=== PATIENT | female | born 1970 | race Caucasian/White ===

== ENCOUNTER 2021-02-01 07:35 | Outpatient (REF) | payer OTHER, SELFPAY ==
[2021-02-01 12:09] LABS: Alanine Aminotransferase 26 U/L (0-31); Albumin Level 4.1 g/dL (3.5-5.0); Alkaline Phosphatase 70 U/L (39-117); Anion Gap 11 (12-20); Aspartate Amino Transferase 22 U/L (5-31); Bilirubin Total 0.5 mg/dL (0.0-1.0); Blood Urea Nitrogen 16 mg/dL (9-16); Calcium 9.2 mg/dL (8.4-10.2); Carbon Dioxide 26 mmol/L (22-29); Chloride 106 mmol/L (96-108); Cholesterol 241 mg/dL; Estimated Glomerular Filt Rate > 60; Glucose Fasting 101 mg/dL (60-99); HDL Cholesterol 65 mg/dL; LDL Cholesterol Calculated 146 mg/dl; Potassium 4.2 mmol/L (3.3-5.1); Sodium 139 mmol/L (135-145); Total Protein 6.8 g/dL (6.5-8.0); Triglycerides 152 mg/dL
[2021-02-01 12:10] LABS: TSH reflex Free T4 5.38 uIU/mL (0.32-4.0)
[2021-02-01 12:55] LABS: Free T4 (Free Thyroxine) 0.75 ng/dL (0.71-1.85)
== END 2021-02-01 07:36 | disposition home or self-care (01) ==
LOC: HO.WFDLDS 07:35
PROVIDERS: Visit Provider Family Medicine
DX: Z00.00 Encounter for general adult medical examination without abnormal findings (principal)
CPT/HCPCS: 36415; 80053; 80061; 84439; 84443

== ENCOUNTER 2021-03-15 16:02 | Outpatient (REF) | payer OTHER, SELFPAY ==
--- NOTE | ~2021-03-15 | MM_ITS ---
EXAMINATION: MM SCREENING DIGITAL BREAST TOMOSYNTHESIS, BILATERAL CLINICAL INFORMATION: Screening. Asymptomatic. The lifetime risk of breast cancer based on the Tyrer-Cuzick Model is 8%. COMPARISON: Outside mammography: 02/14/2019, 02/07/2018, 02/02/2017 ([place]) TECHNIQUE: Digital breast tomosynthesis is performed in both the craniocaudal and mediolateral oblique views along with computer-aided detection (CAD). Synthesized 2D images are generated from the tomosynthesis. FINDINGS: There are scattered areas of fibroglandular density (ACR BI-RADS breast composition Category b). There are no significant masses, abnormal calcifications, or other abnormalities. Parenchymal pattern is similar to prior outside exams. There is no developing density or architectural abnormality. The axilla and skin contours are unremarkable. No significant changes from prior outside studies. MM/MM tomosynthesis screening BI IMPRESSION: No mammographic evidence of malignancy. ASSESSMENT: BI-RADS 1: Negative RECOMMENDATION: Routine annual mammography screening. This patient's information was entered into a reminder system with a target due date for their next mammogram.
== END 2021-03-15 16:03 | disposition home or self-care (01) ==
LOC: HO.MAMMO 16:02
PROVIDERS: Visit Provider Family Medicine
DX: Z12.31 Encounter for screening mammogram for malignant neoplasm of breast (principal)
CPT/HCPCS: 77063; 77067

== ENCOUNTER → 2021-04-07 08:32 | Outpatient (BNVA) | payer OTHER, SELFPAY | PROVIDERS: PCP Family Medicine; Referring Provider Family Medicine; Visit Provider Nurse Practitioner ==

== ENCOUNTER 2021-04-25 07:44 | Outpatient (REF) | payer OTHER, SELFPAY ==
[2021-04-25 11:54] LABS: Anion Gap 11 (12-20); Blood Urea Nitrogen 18 mg/dL (9-16); Calcium 9.4 mg/dL (8.4-10.2); Carbon Dioxide 28 mmol/L (22-29); Chloride 105 mmol/L (96-108); Estimated Glomerular Filt Rate > 60; Glucose Fasting 99 mg/dL (60-99); Potassium 4.7 mmol/L (3.3-5.1); Sodium 139 mmol/L (135-145)
[2021-04-25 12:17] LABS: Free T4 (Free Thyroxine) 0.78 ng/dL (0.71-1.85); Thyroid Stimulating Hormone 5.88 uIU/mL (0.32-4.0)
[2021-04-25 12:19] LABS: Estimated Average Glucose 123 mg/dL; Hemoglobin A1c % 5.9 %
[2021-04-26 19:00] LABS: Triiodothyronine T3 Total 101 ng/dL (76-181)
== END 2021-04-25 07:45 | disposition home or self-care (01) ==
LOC: HO.WFDLDS 07:44
PROVIDERS: Visit Provider Family Medicine
DX: R79.89 Other specified abnormal findings of blood chemistry (principal); R73.01 Impaired fasting glucose
CPT/HCPCS: 36415; 80048; 83036; 84439; 84443; 84480

== ENCOUNTER 2021-08-08 08:59 | Day surgery (SDC) | payer OTHER, SELFPAY ==
--- NOTE | 2021-08-04 13:51 | HO.ANESPROP2 ---
Documented by User: Alisa Hollingsworth NP 08/04/21 13:53 HPI - Anesthesia Eval Consult details Narrative: 51yo F for Upper Endoscopy and Colonoscopy PMFSH Active Problems Active Problems: All Active Problems (Updated 08/01/21 @ 16:09 by Lillie Alonzo, RN) Laboratory exam ordered as part of routine general medical examination (Acute) Heartburn (Acute) GERD (gastroesophageal reflux disease) (Acute) Family history- stomach cancer (Acute) Family history of polyps in the colon (Acute) Elevated fasting blood sugar (Acute) Elevated TSH (Acute) Hyperlipidemia (Acute) Adult general medical exam (Acute) Screening for colon cancer (Acute) Breast cancer screening by mammogram (Acute) Screening for cervical cancer (Acute) Chest wall pain (Acute) Pre-diabetes (Acute) Hypothyroidism (Acute) Past Medical History Medical History (Updated 08/01/21 @ 16:09 by Lillie Alonzo, RN) Anxiety DVT of leg (deep venous thrombosis) GERD (gastroesophageal reflux disease) Hx of blood clots Hypothyroidism Pre-diabetes Restless leg syndrome Surgical History Surgical History History of tonsillectomy Social History Social History Housing: House Patient Tobacco Use Status: Former Tobacco user e-Cigarette/Vaping Use: Never Used Second Hand Smoke Exposure: No Use of substances other than those prescribed or required for medical reasons: No Are you DNR?: No Advance Directives: No Advance Directives Information Provided: Yes service: No Current occupational status: employed Current occupational exposures/hazards: No Cognitive needs: No Hearing needs: No Vision needs: No Meds Allergies Allergy/AdvReac Type Severity Reaction Status Date / Time latex Allergy Mild Unknown Verified 05/05/21 15:52 Home Medications Medication Instructions Recorded Confirmed Last Taken Type aspirin 81 mg tablet,delayed 81 mg PO DAILY 04/07/21 08/01/21 Unknown History release folic acid 20 mg capsule 20 mg PO DAILY 04/07/21 08/01/21 Unknown History magnesium citrate (Citrate of 150 ml PO DAILY 04/07/21 08/01/21 Unknown History Magnesia) Exam Exam Date and Time: August 04, 2021 1351 Pertinent Lab Results Pertinent Lab Results: Laboratory Tests 04/25/21 07:50 Sodium 139 Potassium 4.7 Chloride 105 Carbon Dioxide 28 BUN 18 H Creatinine 0.82 Documented by User: Kim Abdi MD 08/08/21 10:22 [facility] Past Medical History Medical History (Updated 08/01/21 @ 16:09 by Lillie Alonzo RN) Anxiety DVT of leg (deep venous thrombosis) GERD (gastroesophageal reflux disease) Hx of blood clots Hypothyroidism Pre-diabetes Restless leg syndrome Family History Family history of problems with anesthesia: No Surgical History Surgical History History of tonsillectomy History of Problems with Anesthesia: No Social History Social History Housing: House Patient Tobacco Use Status: Former Tobacco user e-Cigarette/Vaping Use: Never Used Second Hand Smoke Exposure: No Use of substances other than those prescribed or required for medical reasons: No Are you DNR?: No Advance Directives: No Advance Directives Information Provided: Yes service: No Current occupational status: employed Current occupational exposures/hazards: No Cognitive needs: No Hearing needs: No Vision needs: No Meds Allergies Allergy/AdvReac Type Severity Reaction Status Date / Time latex Allergy Mild Unknown Verified 05/05/21 15:52 Home Medications Medication Instructions Recorded Confirmed Last Taken Type aspirin 81 mg tablet,delayed 81 mg PO DAILY 04/07/21 08/01/21 Unknown History release folic acid 20 mg capsule 20 mg PO DAILY 04/07/21 08/01/21 Unknown History magnesium citrate (Citrate of 150 ml PO DAILY 04/07/21 08/01/21 Unknown History Magnesia) Exam Airway Mallampati Class: II (Cap in back top right) TM Dist: >3cm Neck ROM: Full Heart: rrr Lungs: cta Assessment and Plan Assessment Anesthesia Assessment: Anesthesia Plan Discussed and Chart Reviewed Final Anesthetic Review Family History of Problems with Anesthesia: No History of Problems with Anesthesia: No NPO: Yes ASA Class: III Final Preanesthetic Review: No Changes in Pt Med Stat, Meds/Allgs Chart Reviewed and Consent Obtained/Reviewed Patient Risk: Intermediate Procedure Risk: Intermediate Anesthetic Plan Anesthetic Plan: MAC: Disposition: Standard PACU
--- NOTE | 2021-08-08 09:17 | P.HPSUR_ITS ---
Pre-Procedural Eval Section A Date of Service: 08/08/21 The patient is an INPATIENT: No The History & Physical has been completed within 30 days and I have reviewed it.: No Section B Chief Complaint: fm hx of polyps,reflux Details of Present Illness: Colon cancer screening, family history of colon polyps, GERD, LUQ pain Relevant Family History (Specify if Yes): Yes Relevant Social History: None Present Medications: see Short Stay Collaborative assessment Medical History: Significant History (Anxiety DVT of leg (deep venous thro mbosis) Hx of blood clots) History of Previous Operations: Relevant previous surgery/procedure and date(s) (History of tonsillectomy) Allergies: Allergies Allergy/AdvReac Type Severity Reaction Status Date / Time latex Allergy Mild Unknown Verified 05/05/21 15:52 Review of Systems Sugical H&P ROS: Negative: Constitution, Cardiovascular and Respiratory and Yes, Specify: Gastrointestinal (GERD) Exam Surgical H&P Exam: Normal: Heart, Normal: Lungs, Normal: Extremities and Normal: Abdomen Plan Diagnosis/Plan: Unchanged I have reviewed the history and physical and performed a pertinent physical examination on my patient. No changes have occurred unless specified.
--- NOTE | 2021-08-08 09:20 | P.BOP_ITS ---
Brief Operative Note Date of Service: 08/08/21 Pre-op diagnosis: Colon cancer screening, family history of colon polyps Post-op diagnosis: other (GERD, gastric polyps, gastritis, diverticulosis, hemorrhoids) Procedure: FLEXIBLE TRANSORAL UPPER GASTROINTESTINAL ENDOSCOPY WITH BIOPSIES AND COLONOSCOPY TILL CECUM UPPER ENDOSCOPY Consent: Indications for the procedure and potential complications of bleeding, perforation, reaction to medications and missed diagnosis were discussed with the patient and informed consent was obtained. Instrument: Olympus GIF H 190 mid size upper endoscope Monitoring: Vital signs and clinical assessment, continuous EKG monitoring, Pulse oximetry, Carbon Dioxide monitoring and blood pressure monitoring were done throughout the procedure. Procedure: The patient was placed in the left lateral decubitis position and pre-procedure medications were administered and a bite block was placed. The endoscope was inserted into the mouth and advanced under direct vision to the third part of duodenum. A careful inspection was made as the upper endoscope was withdrawn including a retroflexed examination of the proximal stomach; Findings and interventions are described below. Findings: Larynx: Normal Esophagus: GE junction at 35 cms. No esophagitis or Horton's. Stomach: Multiple 2-5 mm benign appearing polyps in the gastric body and dundus - biopsied. Mild gastric erythema. Biopsies were obtained. Grade 2 flap valve on retroflexed examination of the cardia. Duodenum: Normal bulb and descending duodenum. Biopsies were obtained from 3rd part of the duodenum to check for celiac sprue. Intervention: Biopsies as noted above COLONOSCOPY PROCEDURE NOTE Consent: Indications for the procedure and potential complications of bleeding, perforation, reaction to medications and missed diagnosis were discussed with the patient and informed consent was obtained. Instrument: Olympus PCF H 190 L variable stiffness pediatric colonoscope Monitoring: Vital signs and clinical assessment, intermittent blood pressure monitoring, continuous EKG monitoring, Pulse oximetry and Carbon Dioxide monitoring were done throughout the procedure. Colon withdrawl time was 14 minutes. Procedure: The patient was placed in the left lateral decubitis position and pre-procedure medications were administered. After a digital rectal examination of the ano-rectum, the video colonoscope was inserted into the rectum and advanced through the colon to the cecum. The colonoscope was slowly withdrawn in a retrograde panoramic fashion and the colon mucosa was carefully examined including a retroflexed view of the rectum. Findings and interventions are described below. Procedure Difficulty: : Without difficulty Findings: Terminal Ileum: Not evaluated Cecum: Normal Ascending Colon: Normal Transverse Colon: Normal Descending Colon: Normal Sigmoid Colon: Moderate diverticulosis Rectum: Normal Ano-rectum: Small internal hemorrhoids Colon preparation: Excellent Impression and Post Procedure Diagnosis: Endoscopy Findings: ESOPHAGUS: GE junction at 35 cms. No esophagitis or Horton's. STOMACH: Multiple 2-5 mm benign appearing polyps in the gastric body and dundus - biopsied. Mild gastric erythema. Biopsies were obtained. DUODENUM: Normal - biopsied to check for celiac sprue Colonoscopy Findings: No polyps were detected Moderate diverticulosis seen in the sigmoid colon Small hemorrhoids on retroflexed exam. No source found for abdominal pain Plan: Await pathology results Patient has an appointment on 09/12/21 in the GI Clinic with Monica Conroy NP. Consider further evaluation with abdominal CT scan if pt continues to have abdominal pain. Repeat Colonoscopy - in 5 years due to positive family hx of colon polyps. GERD, gastric polyps and diverticulosis handouts were given in the discharge area Surgeon: Modesto Solis MD Anesthesia: MAC (Dr Corbin) Was an Master Lay Out Specialist used for this Procedure?: Yes Master Lay Out Specialist: Mindy Davalos Estimated blood loss (mL): 0 Pathology: other (A. small bowel bxs, R/O celiac B. gastric antrum bxs, R/O H. pylori C. gastric polyps bxs) Condition: stable Disposition: PACU
[2021-08-08 09:31] VITALS: BMI 29.2
[2021-08-08 09:36] VITALS: BP 145/71; PULSE 73; RESP 18; TEMP 36.2; O2SAT 96
[2021-08-08] MEDS: Lactated Ringers 1,000 ML 100 ML IVCONT (09:47)
--- NOTE | 2021-08-08 10:31 | P.OP_ITS ---
Operative Note Operative Note Date of Service: 08/08/21 Narrative: Pre-op diagnosis: Colon cancer screening, family history of colon polyps Post-op diagnosis:?other (GERD, gastric polyps, gastritis, diverticulosis, hemorrhoids) Procedure: FLEXIBLE TRANSORAL UPPER GASTROINTESTINAL ENDOSCOPY WITH BIOPSIES AND COLONOSCOPY TILL CECUM UPPER ENDOSCOPY Consent:?Indications for the procedure and potential complications of bleeding, perforation, reaction to medications and missed diagnosis were discussed with the patient and informed consent was obtained. Instrument:?Olympus GIF H 190 mid size upper endoscope Monitoring: Vital signs and clinical assessment, continuous EKG monitoring, Pulse oximetry, Carbon Dioxide monitoring and blood pressure monitoring were done throughout the procedure. Procedure:?The patient was placed in the left lateral decubitis position and pre-procedure medications were administered and a bite block was placed. The endoscope was inserted into the mouth and advanced under direct vision to the third part of duodenum. A careful inspection was made as the upper endoscope was withdrawn including a retroflexed examination of the proximal stomach; Findings and interventions are described below. Findings: Larynx:? Normal Esophagus:?GE junction at 35 cms. No esophagitis or Horton's. Stomach:?Multiple 2-5 mm benign appearing polyps in the gastric body and dundus - biopsied. Mild gastric erythema. Biopsies were obtained. Grade 2 flap valve on retroflexed examination of the cardia. Duodenum:?Normal bulb and descending duodenum. Biopsies were obtained from 3rd part of the duodenum to check for celiac sprue. Intervention:?Biopsies as noted above COLONOSCOPY PROCEDURE NOTE Consent:?Indications for the procedure and potential complications of bleeding, perforation, reaction to medications and missed diagnosis were discussed with the patient and informed consent was obtained. Instrument:?Olympus PCF H 190 L variable stiffness pediatric colonoscope Monitoring:?Vital signs and clinical assessment, intermittent blood pressure monitoring, continuous EKG monitoring, Pulse oximetry and Carbon Dioxide monitoring were done throughout the procedure. Colon withdrawl time was 14 minutes. Procedure:?The patient was placed in the left lateral decubitis position and pre-procedure medications were administered. After a digital rectal examination of the ano-rectum, the video colonoscope was inserted into the rectum and advanced through the colon to the cecum. The colonoscope was slowly withdrawn in a retrograde panoramic fashion and the colon mucosa was carefully examined including a retroflexed view of the rectum. Findings and interventions are described below. Procedure Difficulty:?: Without difficulty Findings: Terminal Ileum: Not evaluated Cecum:? Normal Ascending Colon:??Normal Transverse Colon:??Normal Descending Colon:? Normal Sigmoid Colon:??Moderate diverticulosis Rectum:??Normal Ano-rectum:??Small internal hemorrhoids Colon preparation: Excellent ? Impression and Post Procedure Diagnosis: Endoscopy Findings: ESOPHAGUS: GE junction at 35 cms. No esophagitis or Horton's. STOMACH: Multiple 2-5 mm benign appearing polyps in the gastric body and dundus - biopsied. Mild gastric erythema. Biopsies were obtained. DUODENUM: Normal - biopsied to check for celiac sprue Colonoscopy Findings: No polyps were detected Moderate diverticulosis seen in the sigmoid colon Small hemorrhoids on retroflexed exam. No source found for abdominal pain Plan: Await pathology results Patient has an appointment on 09/12/21 in the GI Clinic with? Monica Conroy NP. Consider further evaluation with abdominal CT scan if pt continues to have abdominal pain. Repeat Colonoscopy - in 5 years due to positive family hx of colon polyps. GERD, gastric polyps and diverticulosis handouts were given in the discharge area Surgeon: Modesto Solis MD Anesthesia:?MAC (Dr Corbin) Was an Surface Hydrologist used for this Procedure?:?Yes Surface Hydrologist:?Mindy Davalos Estimated blood loss (mL):?0 Pathology:?other (A. small bowel bxs, R/O celiac? B. gastric antrum bxs, R/O H. pylori? C. gastric polyps bxs) Condition:?stable Disposition:?PACU
[2021-08-08 11:16] VITALS: BP 93/42; PULSE 58; RESP 16; TEMP 36.2; O2SAT 96
[2021-08-08 11:31] VITALS: BP 115/55; PULSE 65; RESP 16; O2SAT 96
[2021-08-08 11:44] VITALS: BP 121/61; PULSE 69; RESP 20; TEMP 36.2; O2SAT 98
== END 2021-08-08 12:10 | disposition home or self-care (01) ==
PROVIDERS: PCP Family Medicine; Visit Provider Internal Medicine Gastroenterology
PROC: (CPT 45378; principal; 2021-08-08 10:10)
DX: Z12.11 Encounter for screening for malignant neoplasm of colon (principal); Z83.71 Family history of colonic polyps; K21.9 Gastro-esophageal reflux disease without esophagitis; K31.7 Polyp of stomach and duodenum; K29.50 Unspecified chronic gastritis without bleeding; K57.30 Diverticulosis of large intestine without perforation or abscess without bleeding; K64.8 Other hemorrhoids; F41.1 Generalized anxiety disorder; Z79.82 Long term (current) use of aspirin; Z79.899 Other long term (current) drug therapy; Z91.040 Latex allergy status; Z86.718 Personal history of other venous thrombosis and embolism; Z87.891 Personal history of nicotine dependence
CPT/HCPCS: 45378; 43239; 88305; 88342

== ENCOUNTER 2021-10-11 07:40 | Outpatient (REF) | payer OTHER, SELFPAY ==
[2021-10-11 12:15] LABS: Free T4 (Free Thyroxine) 0.94 ng/dL (0.71-1.85)
[2021-10-13 04:45] LABS: Triiodothyronine T3 Total 78 ng/dL (76-181)
== END 2021-10-11 07:41 | disposition home or self-care (01) ==
LOC: HO.WFDLDS 07:40
PROVIDERS: Visit Provider Family Medicine
DX: E03.9 Hypothyroidism, unspecified (principal)
CPT/HCPCS: 36415; 84439; 84443; 84480

== ENCOUNTER 2021-11-24 07:42 | Outpatient (REF) | payer OTHER, SELFPAY ==
[2021-11-24 11:29] LABS: Thyroid Stimulating Hormone 2.36 uIU/mL (0.32-4.0)
[2021-11-26 07:33] LABS: Triiodothyronine T3 Total 97 ng/dL (76-181)
== END 2021-11-24 07:43 | disposition home or self-care (01) ==
LOC: HO.WFDLDS 07:42
PROVIDERS: Visit Provider Family Medicine
DX: E03.9 Hypothyroidism, unspecified (principal)
CPT/HCPCS: 36415; 84439; 84443; 84480

== ENCOUNTER 2022-03-27 08:15 | Outpatient (REF) | payer OTHER, SELFPAY ==
--- NOTE | ~2022-03-27 | MM_ITS ---
EXAMINATION: MM SCREENING DIGITAL BREAST TOMOSYNTHESIS, BILATERAL CLINICAL INFORMATION: Screening. Asymptomatic. The lifetime risk of breast cancer based on the Tyrer-Cuzick Model is 10.7%. COMPARISON: Mammography: March 15, 2021 and studies dating back to February 02, 2017 TECHNIQUE: Digital breast tomosynthesis is performed in both the craniocaudal and mediolateral oblique views along with computer-aided detection (CAD). Synthesized 2D images are generated from the tomosynthesis. FINDINGS: There are scattered areas of fibroglandular density (ACR BI-RADS breast composition Category b). There are no significant masses, abnormal calcifications, or other abnormalities. MM/MM tomosynthesis screening BI IMPRESSION: No significant changes from prior exam. ASSESSMENT: BI-RADS 1: Negative RECOMMENDATION: Routine annual mammography screening. This patient's information was entered into a reminder system with a target due date for their next mammogram.
== END 2022-03-27 08:16 | disposition home or self-care (01) ==
LOC: HO.MAMMO 08:15
PROVIDERS: PCP Family Medicine; Visit Provider Family Medicine
DX: Z12.31 Encounter for screening mammogram for malignant neoplasm of breast (principal)
CPT/HCPCS: 77063; 77067

== ENCOUNTER 2022-05-09 08:03 | Outpatient (REF) | payer OTHER, SELFPAY ==
[2022-05-09 11:40] LABS: MANUAL DIFF FLAG NO
[2022-05-09 11:55] LABS: Appearance Urine Turbid; Color Urine Yellow; Glucose Urine UA Negative (Negative); Leukocyte Esterase Urine Trace (Negative); Nitrite Urine Negative (Negative); PH 8.5 (5.0-9.0); Specific Gravity - Urine 1.015 (1.005-1.025); UMIC TRIGGER UA YES; Urine Blood Negative (Negative); Urine Ketones Negative (Negative); Urine Protein Negative (Neg-Trace)
[2022-05-09 11:58] LABS: Basophils Percent Auto 0.8 % (0-2); Eosinophils Absolute Auto 0.3 X10*3/uL (0.0-0.4); Eosinophils Percent Auto 5.4 % (0-4); Hematocrit 40.8 % (37.0-47.0); Hemoglobin 12.9 g/dl (12.0-16.0); Imm Gran Abs Auto 0.01 X10*3/uL (0.00-0.03); Imm Gran Pct Auto 0.2 % (0.0-0.4); Lymphocytes Absolute Auto 1.9 X10*3/uL (1.2-4.9); Lymphocytes Percent Auto 38.2 % (20-40); Mean Corpuscular HGB Conc 31.6 g/dl (31.0-35.0); Mean Corpuscular Hemoglobin 30.7 pg (27.0-33.0); Mean Corpuscular Volume 97.1 fL (80.0-98.0); Mean Platelet Volume 10.7 fL (9.4-12.3); Monocytes Absolute Auto 0.3 X10*3/uL (0.1-1.2); Monocytes Percent Auto 6.8 % (2-11); Neutrophils Absolute Auto 2.4 x10*3/uL (2.0-8.3); Neutrophils Percent Auto 48.6 % (45-73); Platelet Count 241 X10*3/uL (160-400); Red Cell Distribution Width 12.6 % (11.0-16.0)
[2022-05-09 12:05] LABS: Bacteria Urine 1+ (None Seen); Hyaline Casts Urine 0-2 /LPF (0-2); RBC Urine 0-2 /HPF (0-2); WBC Urine 21-50 /HPF (0-5)
[2022-05-09 12:30] LABS: Alanine Aminotransferase 50 U/L (0-31); Albumin Level 4.1 g/dL (3.5-5.0); Alkaline Phosphatase 87 U/L (39-117); Anion Gap 12 (12-20); Aspartate Amino Transferase 42 U/L (5-31); Bilirubin Total 0.4 mg/dL (0.0-1.0); Blood Urea Nitrogen 13 mg/dL (9-16); Calcium 9.1 mg/dL (8.4-10.2); Carbon Dioxide 30 mmol/L (22-29); Chloride 105 mmol/L (96-108); Cholesterol 258 mg/dL; Estimated Glomerular Filt Rate > 60; Glucose Fasting 97 mg/dL (60-99); HDL Cholesterol 58 mg/dL; LDL Cholesterol Calculated 155 mg/dl; Potassium 4.3 mmol/L (3.3-5.1); Sodium 143 mmol/L (135-145); Total Protein 6.7 g/dL (6.5-8.0); Triglycerides 226 mg/dL
[2022-05-09 12:43] LABS: Creatinine Urine 106.26 mg/dL
[2022-05-09 12:49] LABS: Free T4 (Free Thyroxine) 0.92 ng/dL (0.71-1.85); Thyroid Stimulating Hormone 5.01 uIU/mL (0.32-4.0)
[2022-05-11 02:14] LABS: Triiodothyronine T3 Total 110 ng/dL (76-181)
== END 2022-05-09 08:04 | disposition home or self-care (01) ==
LOC: HO.WFDLDS 08:03
PROVIDERS: Visit Provider Family Medicine
DX: Z00.00 Encounter for general adult medical examination without abnormal findings (principal); E03.9 Hypothyroidism, unspecified; I10 Essential (primary) hypertension
CPT/HCPCS: 36415; 80053; 80061; 81001; 82043; 84439; 84443; 84480; 85025

== ENCOUNTER 2022-07-18 07:58 | Outpatient (REF) | payer OTHER, SELFPAY ==
[2022-07-18 12:03] LABS: Alanine Aminotransferase 46 U/L (0-31); Albumin Level 4.1 g/dL (3.5-5.0); Alkaline Phosphatase 87 U/L (39-117); Anion Gap 13 (12-20); Aspartate Amino Transferase 35 U/L (5-31); Bilirubin Total 0.5 mg/dL (0.0-1.0); Blood Urea Nitrogen 15 mg/dL (9-16); Calcium 9.4 mg/dL (8.4-10.2); Carbon Dioxide 29 mmol/L (22-29); Chloride 104 mmol/L (96-108); Estimated Glomerular Filt Rate > 60; Glucose Random 99 mg/dL (60-115); Potassium 4.6 mmol/L (3.3-5.1); Sodium 141 mmol/L (135-145); Total Protein 6.7 g/dL (6.5-8.0)
[2022-07-18 12:22] LABS: Thyroid Stimulating Hormone 2.96 uIU/mL (0.32-4.0)
[2022-07-20 07:34] LABS: Triiodothyronine T3 Total 90 ng/dL (76-181)
== END 2022-07-18 07:59 | disposition home or self-care (01) ==
LOC: HO.WFDLDS 07:58
PROVIDERS: Visit Provider Family Medicine
DX: E03.9 Hypothyroidism, unspecified (principal); R74.8 Abnormal levels of other serum enzymes
CPT/HCPCS: 36415; 80053; 84439; 84443; 84480

== ENCOUNTER 2022-07-25 07:35 | Outpatient (REF) | payer OTHER, SELFPAY ==
[2022-07-25 12:17] LABS: Creatinine Urine 110.86 mg/dL; Microalbum/Creatinine Ratio Ur 10.8 ug/mg cr
== END 2022-07-25 07:36 | disposition home or self-care (01) ==
LOC: HO.WFDLNP 07:35
PROVIDERS: Visit Provider Family Medicine
DX: I10 Essential (primary) hypertension (principal); R80.9 Proteinuria, unspecified
CPT/HCPCS: 82043

== ENCOUNTER 2022-08-30 08:55 | Outpatient (REF) | payer OTHER, SELFPAY ==
[2022-08-31 11:10] LABS: CT PCR NOT DETECTED (Not Detect.); NG PCR NOT DETECTED (Not Detect.)
[2022-08-31 12:38] LABS: BV Int Neg Control Negative (Negative); BV Int Pos Control Positive (Positive)
[2022-09-02 03:27] LABS: HPV mRNA E6/E7 rflx Not Detected (Not Detected)
== END 2022-08-30 08:56 | disposition home or self-care (01) ==
LOC: HO.LNP 08:55
PROVIDERS: PCP Family Medicine; Visit Provider Advanced Practice Midwife
DX: Z01.419 Encounter for gynecological examination (general) (routine) without abnormal findings (principal); I10 Essential (primary) hypertension; E03.9 Hypothyroidism, unspecified; R73.03 Prediabetes; N95.1 Menopausal and female climacteric states; N39.3 Stress incontinence (female) (male); Z86.718 Personal history of other venous thrombosis and embolism; Z79.82 Long term (current) use of aspirin; Z98.890 Other specified postprocedural states; Z20.2 Contact with and (suspected) exposure to infections with a predominantly sexual mode of transmission; Z79.899 Other long term (current) drug therapy
CPT/HCPCS: 0353U; 87480; 87510; 87624; 87660; 88142

== ENCOUNTER 2023-09-20 09:32 | Outpatient (AMB) | payer OTHER, SELFPAY ==
--- NOTE | 2023-09-20 09:33 | A.OFFVIS_ITS ---
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 Fuel Handler Required: No Information Interpreted: clinical only Chief Knowledge Officer: Chief Knowledge Officer Present Allergies latex Allergy (Mild, Verified 09/20/23 09:38) Unknown Medication List - Last Reconciled 09/20/23 by Leesa Jha CNM aspirin 81 mg PO DAILY folic acid 20 mg PO DAILY levothyroxine 50 mcg PO DAILY 30 days lorazepam 0.5 mg PO DAILY PRN 30 days magnesium citrate (Citrate of Magnesia oral) 150 mL PO DAILY sertraline 75 mg (1.5 x 50 mg) PO DAILY 30 days Post menopausal: Yes HPI HPI 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 With all that her blood pressure is good she is not sure if she missed her mammogram or if it when it is scheduled but she will be checking on that she has gotten no worries at all about STDs she has a history of abnormal Paps and LEEP in the past but they have been normal including last year's which was normal since and she has no other major concerns. COUNTS INCLUDE 234 BEDS AT THE [facility] Medical History (Updated 09/20/23 @ 10:03 by Leesa Jha CNM) Hx of LEEP (loop electrosurgical excision procedure) of cervix complicating Pre-diabetes GERD (gastroesophageal reflux disease) Hypothyroidism Restless leg syndrome DVT of leg (deep venous thrombosis) Hx of blood clots Anxiety Surgical History (Updated 09/22/22 @ 16:37 by Leesa Jha CNM) History of endoscopy History of colonoscopy History of tonsillectomy Family History (Updated 08/30/22 @ 09:17 by LUCY Dye) Paternal Grandmother Breast cancer Social History Housing: House Alcohol intake: current Alcohol intake frequency: a few times a week Patient Tobacco Use Status: Former Tobacco user e-Cigarette/Vaping Use: Never Used Second Hand Smoke Exposure: No service: No Current occupational status: employed Current occupational exposures/hazards: No Cognitive needs: No Hearing needs: No Vision needs: Yes (glasses) Female Reproductive History Menstrual Age of Menarche: 12 control method: none Total pregnancies: 3 Full term: 3 Date of last pap smear: 08/31/22 (neg) History of abnormal pap smear: Yes (2013 abn.) Date of Mammogram: 03/27/22 (neg.) Physical Exam Const General: healthy appearing, comfortable, no acute distress, well developed and alert Nutritional Appearance: average body habitus Orientation/consciousness: patient oriented x3 Limitations: no limitations HEENT Head: Yes normocephalic Neck Neck: Yes normal visual inspection Chest Chest palpation & inspection: normal inspection of the chest Breast/axilla inspection: normal inspection of the breasts and normal inspection of the axillae Breast/axilla palpation: normal palpation of the breasts and normal palpation of the axillae Resp Effort & Inspection: normal respiratory effort GI Inspection: Yes normal to inspection, No Abdominal wall edema and No distended Palpation (GI): Soft to palpation and nontender Other: Externally appears a little pink but patient denies any major issues with itching or inflammation. Vagina pink moist atrophic changes at present cervix close small nontender uterus difficult feel but not enlarged adnexa not enlarged nothing tender very very good tone with Kegel. General: Yes bladder normal to palpation External Female Exam: normal external appearance and normal appearance of the urethra Speculum Exam - Vagina: normal appearance of the vagina, normal palpation and normal vaginal discharge Speculum Exam - Cervix: normal appearance of the cervix, normal palpation and nontender Bimanual exam- vagina & uterus: normal bimanual exam, normal palpation, uterine size normal, bladder normal to palpation, consistency normal, normal palpation, uterine mobility normal, uterine shape normal, No Cervical tenderness present, non-tender and no cervical motion tenderness Bimanual Exam- Adnexa, other: normal adnexae, no masses, normal and No adnexal tenderness Neuro General: patient oriented x3 Results Reviewed Results Reviewed: Name: Jeanie Headley Age/Sex: 52/F Attending: Leesa Jha CNM : 1970 Submitted by: Leesa Jha CNM Copies to: Rinku Freitas MD MR #: [id number] Status: DEP REF Collected: 08/30/22 Location: [facility] Received: 08/31/22 Interpretation Satisfactory for evaluation. No endocervical cells seen. Coccobacilli consistent with shift in vaginal joey. Negative for intraepithelial lesion or malignancy. HPV mRNA E6/E7: NOT DETECTED This assay detects E6/E7 viral messenger RNA (mRNA) from 14 high-risk HPV types (16, 18, 31, 33, 35, 39, 45, 51, 52, 56, 58, 59, 66, 68) HPV testing performed by [facility], [place], [place]. See reference laboratory pion of the EMR for entire report. Clinical Information LMP: No menses Previous PAP test: Unknown date/findings Material Received ThinPrep-Cervical Copies To Rinku Freitas MD [address] [place], [place] [id number] Leesa Jha [address] [place] [id number] Electronically Signed By: ELIE Allen (ASCP) 09/22/22 1328 The Pap Test is a screening procedure with the inherent possibility of both false negative and false positive results. Results should be interpreted in the context of historic and current clinical findings. Reliability of the Pap Test is enhanced by performing the test on a regular repetitive basis. Patient: Jeanie Headley Age/Sex: 52/F Assessment & Plan Assessment & Plan (1) Perimenopause: Code(s): N95.1 - Menopausal and female climacteric states Category: Medical (2) Hypertension: Comment: Normotensive today despite being sent to multiple offices! Code(s): I10 - Essential (primary) hypertension Category: Medical (3) Breast cancer screening: Code(s): Z12.39 - Encounter for other screening for malignant neoplasm of breast Category: Medical (4) Well woman exam with routine gynecological exam: Code(s): Z01.419 - Encounter for gynecological examination (general) (routine) without abnormal findings Category: Medical (5) History of loop electrical excision procedure (LEEP): Comment: 08/30/2022 Pap is negative with negative HPV Code(s): Z98.890 - Other specified postprocedural states Category: Surgical Plan -----Discussed in this visit the following: healthy balanced diet, regular and consistent exercise, getting recommended health screens, doing the best she can for her particular health concerns, kegel exercises, pap smear screening and followup recommendations, mammography screening and SBE, normal changes in cycles in her life stage--- . No need for Pap today is her recent Paps were negative and last year's was negative as well. She declined any testing for STIs. She is not feeling any issue with vaginal itching and declined prescription for Monistat she would just pick it up on her own if she needs it and it is not really an issue for her. She is extremely active physically at work walking and moving around and she and her colleagues go for walks every day at lunch and she gets all her steps in. Even with atrophic changes she has no issues with intimacy and she uses lubricant if she needs it. She has excellent muscle tone with her Kegel and she is doing very well RTC 1 year she will be rescheduling her mammogram. Coding Level of Care Code Est Pt Prev Care 40-64y(14210) Diagnoses Perimenopause N95.1 Hypertension I10 Breast cancer screening Z12.39 Well woman exam with routine gynecological exam Z01.419 History of loop electrical excision procedure (LEEP) Z98.890
[2023-09-20 09:38] VITALS: BP 122/78; BMI 27.8
== END 2023-09-20 10:07 | disposition home or self-care (01) ==
LOC: HO.HWSM 09:32
PROVIDERS: PCP Family Medicine; Visit Provider Advanced Practice Midwife
DX: Z01.419 Encounter for gynecological examination (general) (routine) without abnormal findings (principal); N95.1 Menopausal and female climacteric states; I10 Essential (primary) hypertension; Z98.890 Other specified postprocedural states
CPT/HCPCS: 99396

== ENCOUNTER → 2023-09-20 09:32 | Outpatient (BNVA) | payer OTHER, SELFPAY | PROVIDERS: PCP Family Medicine; Visit Provider Advanced Practice Midwife ==

== ENCOUNTER 2023-10-01 12:27 | Outpatient (AMB) | payer OTHER, SELFPAY ==
--- NOTE | 2023-10-01 12:33 | MHC.OFFWIV ---
Intake Vital Signs 10/01/23 12:34 Height 5 ft 3 in Weight 158 lb BMI 28.0 BP 124/80 Blood Pressure Location Rt brachial Position Sitting Pulse 67 Pulse Source Pulse Oximeter Temp 98.2 F Temp Source Oral Pulse Oximetry (%) 98 Oxygen Delivery Method Room Air Intake Visit Reasons: EP- Aches in sinuses on the right side Intake Note: Patient here sinus pain, headache,sore throat and ear pain which is only on the right side which has been present since Sunday. Patient Tobacco Use Status: Former Tobacco user Allergies latex Allergy (Mild, Verified 10/01/23 12:36) Unknown Do you need a note to return to daycare/school/sports/work: Yes HPI EP- Aches in sinuses on the right side HPI Details This note is constructed using voice recognition software. While every effort has been made to ensure accuracy, chief pharmacist errors may have been included. The patient is a 53 year old female who presents to the clinic today with sinus, throat and ear pain on right since Sunday. She notes that she has a chronic allergy and sinus suffer and is unable to tolerate Flonase nasal spray so she does use Flonase Sensimist occasionally for her symptoms, and she did try that today. She denies fever, chills, cough, shortness of breath. She reports feeling overall run down. [facility] Medical History Hx of LEEP (loop electrosurgical excision procedure) of cervix complicating Pre-diabetes GERD (gastroesophageal reflux disease) Hypothyroidism Restless leg syndrome DVT of leg (deep venous thrombosis) Hx of blood clots Anxiety Surgical History History of endoscopy History of colonoscopy History of tonsillectomy Family History Paternal Grandmother Breast cancer Social History Housing: House Alcohol intake: current Alcohol intake frequency: a few times a week Patient Tobacco Use Status: Former Tobacco user e-Cigarette/Vaping Use: Never Used Second Hand Smoke Exposure: No service: No Current occupational status: employed Current occupational exposures/hazards: No Cognitive needs: No Hearing needs: No Vision needs: Yes (glasses) Female Reproductive History Menstrual Age of Menarche: 12 Review of Systems Const All systems reviewed & are unremarkable except as noted in HPI and below Physical Exam Vital Signs: Last Vital Signs Temp 98.2 F 10/01/23 12:34 Pulse 67 10/01/23 12:34 BP 124/80 10/01/23 12:34 Pulse Ox 98 10/01/23 12:34 Oxygen Delivery Method Room Air 10/01/23 12:34 BMI result Body Mass Index 28.0 Const General: cooperative, healthy appearing, comfortable and no acute distress Orientation/consciousness: patient oriented x3 Limitations: no limitations HEENT Head: Yes normal to inspection Ears: hearing grossly normal bilaterally, external ears normal and TM abnormal with fluid behind the TM (white) bilateral and retracted bilateral General nose exam: Normal external nose present, Normal nares present and No nasal discharge present Face and sinus: Yes normal facial exam and Yes sinuses nontender Mouth: Normal oral and palatal mucosa present and moist mucous membranes Throat: Yes posterior oropharynx normal, Yes tonsils normal and Yes uvula midline Eyes General: appearance normal, both eyes and all related structures Neck Neck: Yes normal visual inspection Resp Effort & Inspection: normal respiratory effort, able to speak in complete sentences, Actively coughing, no respiratory distress, not tachypneic, no tripod positioning and no use of accessory muscles Auscultation: clear to auscultation bilaterally Cardio Jugular venous distension: no JVD Rate: regular rate Rhythm: regular rhythm Heart sounds: S1 normal heart sound present, S2 normal heart sound present, no click, no gallops, no murmurs and no rubs Skin General skin exam: no rashes or lesions noted, elasticity normal and turgor normal Neuro General: patient oriented x3 Extrem General: Yes normal to inspection and Yes no clubbing, cyanosis or edema Assessment & Plan Assessment & Plan (1) Acute upper respiratory infection, unspecified: Code(s): J06.9 - Acute upper respiratory infection, unspecified Plan: Physical examination consistent with likely allergies, however given recent local uptake in coronavirus and symptomatology, we did test for coronavirus today. Advised patient to continue quarantine until day 5 after symptoms and then returned to work with mask wearing if symptoms have improved, especially if test proves to be positive. He had symptomatic management with [id number] modalities including hydration, humidification, steam, sinus rinse, Flonase Sensimist, and decongestants. Advised follow up with worsening symptoms or failure to resolve. Plan See above for full details and plan. Orders: Orders SARS-CoV2/FLU/RSV Today J06.9 - Acute upper respiratory infection, unspecified Coding Level of Care Code Est Pt Level 3 (31409) Diagnoses Acute upper respiratory infection, unspecified J06.9
[2023-10-01 12:34] VITALS: BP 124/80; PULSE 67; TEMP 36.8; O2SAT 98; BMI 28.0
== END 2023-10-01 13:11 | disposition home or self-care (01) ==
PROVIDERS: PCP Family Medicine; Visit Provider Registered Nurse
DX: J06.9 Acute upper respiratory infection, unspecified (principal)
CPT/HCPCS: 99213

== ENCOUNTER 2023-10-01 12:46 | Outpatient (REF) | payer OTHER, SELFPAY ==
[2023-10-01 17:00] LABS: Influenza A PCR NEGATIVE (Negative); Influenza B PCR NEGATIVE (Negative); Resp Syncy Virus RNA Qual PCR NEGATIVE (Negative); SARS COV2 PCR INHOUSE NEGATIVE (Negative)
== END 2023-10-01 12:47 | disposition home or self-care (01) ==
LOC: HO.LNP 12:46
PROVIDERS: Visit Provider Registered Nurse
DX: J06.9 Acute upper respiratory infection, unspecified (principal)
CPT/HCPCS: 0241U

== ENCOUNTER 2024-09-10 09:12 | Outpatient (AMB) | payer OTHER, SELFPAY ==
[2024-09-10 09:24] VITALS: BP 142/86; PULSE 85; TEMP 36.8; O2SAT 98; BMI 28.3
--- NOTE | 2024-09-10 09:24 | AM.OFFWIN_ITS ---
Intake Vital Signs 09/10/24 09:24 Height 5 ft 3 in Weight 160 lb BMI 28.3 BP 142/86 H Blood Pressure Location Rt brachial Position Sitting Pulse 85 Pulse Source Pulse Oximeter Temp 98.2 F Temp Source Oral Pulse Oximetry (%) 98 Oxygen Delivery Method Room Air Intake Visit Reasons: EP-lt shoulder & arm pain Intake Note: presents with worsening left shoulder and left arm pain for 5 days - denies injury. BS ER visit 09/08, xray and ultrasound done- results WNL. Patient Tobacco Use Status: Former Tobacco user Allergies latex Allergy (Mild, Verified 09/10/24 09:28) Unknown Do you need a note to return to daycare/school/sports/work: Yes HPI HPI Comments History of Present Illness Details History of Present Illness - The patient is a 54-year-old female pr esenting with left severe shoulder pain with radiating symptoms. - The pain began on Sunday, initially to lerable but worsened over the weekend, becoming severe by Sunday. - The pain is located in the shoulder bl jaiden, radiating down the arm to the fingers, with associated tingling. - The patient visited [facility], where an ultrasound of the left arm and x-ray were performed, ruling out blood clots and fractures. - Medications including lidocaine gel, i buprofen, Valium, and Tylenol were administered without relief. - The patient attempted to contact ortho pedics for further evaluation but faced communication issues. - The pain is exacerbated by certain mov ements and alleviated slightly when ly ing down. 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 - She has been out of work and needs to extend her leave due to her pain. - She has no trauma or falls. She denies CP, SOB, abd pain, neck pain. - Has not been able to sleep due to her pain. Physical Exam General: Cooperative, healthy appearing, comfortable, no acute distress and well developed Neck: Normal visual inspection, and full ROM. No midline spinous tenderness noted. Respiratory: Normal respiratory effort and able to speak in complete sentences. Clear to auscultation bilaterally Cardiovascular: Regular rate and rhythm. Normal S1 and S2 Skin: No rashes or lesions noted Neuro: Sensation intact. Extremities: Normal to inspection. FROM Of the left shoulder, no click noted. TTP of the left posterior shoulder, along the trapezius and rhomboids. FROM of the elbow and wrist. 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 Lift off, can test, and apprehension test are all normal. Patient was informed and verbally consented to the use of an ambient scribe for clinic note documentation during this visit. [facility]LY [facility], [facility] Medical History Hx of LEEP (loop electrosurgical excision procedure) of cervix complicating Pre-diabetes GERD (gastroesophageal reflux disease) Hypothyroidism Restless leg syndrome DVT of leg (deep venous thrombosis) Hx of blood clots Anxiety Surgical History History of endoscopy History of colonoscopy History of tonsillectomy Family History Paternal Grandmother Breast cancer Social History Housing: House Alcohol intake: current Alcohol intake frequency: a few times a week Patient Tobacco Use Status: Former Tobacco user e-Cigarette/Vaping Use: Never Used Second Hand Smoke Exposure: No service: No Current occupational status: employed Current occupational exposures/hazards: No Cognitive needs: No Hearing needs: No Vision needs: Yes (glasses) Female Reproductive History Menstrual Age of Menarche: 12 Review of Systems Const All systems reviewed & are unremarkable except as noted in HPI and below Physical Exam Vital Signs: Last Vital Signs Temp 98.2 F 09/10/24 09:24 Pulse 85 09/10/24 09:24 BP 142/86 H 09/10/24 09:24 Pulse Ox 98 09/10/24 09:24 Oxygen Delivery Method Room Air 09/10/24 09:24 BMI result Body Mass Index 28.3 Assessment & Plan Assessment & Plan (1) Strain of left trapezius muscle: Code(s): S46.812A - Strain of other muscles, fascia and tendons at shoulder and upper arm level, left arm, initial encounter Qualifiers: Encounter type: subsequent encounter Qualified Code(s): S46.812D - Strain of other muscles, fascia and tendons at shoulder and upper arm level, left arm, subsequent encounter Plan Most likely spasm vs strain Reviewed her discharge paperwork from [facility] Offered her a torodal injection in the office today and she refused Plan - rest, ice or heat to the area - activities as tolerated - will give her a work note - Administer prednisone to reduce inflammation and muscle spasm. - Prescribe a different muscle relaxant as Valium was ineffective. - Provide a referral to [facility] orthopedics for further evaluation. Orders: Referrals Orthopedics Referral S46.811W - Strain of other muscles, fascia and tendons at shoulder and upper arm level, left arm, initial encounter Medications: New prednisone 50 mg PO QAM 5 tabs 0RF cyclobenzaprine 10 mg (2 x 5 mg) PO Q8H PRN 20 tabs 0RF Muscle Spasm meloxicam 15 mg PO DAILY 15 tabs 0RF Coding Level of Care Code Est Pt Level 4 (74661) Diagnoses Strain of left trapezius muscle, subsequent encounter S46.634H Encounter type: subsequent encounter
--- OUTSIDE RECORDS SUMMARY | 2024-09-10 09:42 | XMS_ITS | Clinical Summary ---
Author Organization Formerly [facility] Address [address] [place] [address] Care Team Providers Care Nut Former Name Role Phone Rinku Freitas MD Primary Care Provider Allergies Active Allergy Reactions Criticality Noted Date Comments Latex Hives Medium 12/20/2023 Medications levothyroxine (SYNTHROID, LEVOTHROID) 50 MCG tablet Take 50 mcg by mouth. 12/14/2023 Active sertraline (ZOLOFT) 50 MG tablet Take 50 mg by mouth daily. Active predniSONE (DELTASONE) 20 MG tabletIndication s:Acute bronchitis, unspecified organism Take 2 tablets (40 mg total) by mouth daily. With food. 10 tablet 12/20/2023 Active Active Problems No known active problems Social History Tobacco Use Types Packs/Day Years Used Date Smoking Tobacco: Never Smokeless Tobacco: Never Tobacco Cessation:Counseling Given: Not Answered Comments Unknown Sex and Gender Information Value Date Recorded Sex Assigned at Not on file Legal Sex Female 12:56 PM EST Gender Identity Not on file Sexual Orientation Not on file Last Filed Vital Signs Vital Sign Reading Time Taken Comments Blood Pressure 142/86 12/20/2023 12:20 PM EDT Pulse 72 12/20/2023 12:20 PM EDT Temperature 36.9 C (98.4 F) 12/20/2023 12:20 PM EDT Respiratory Rate 16 12/20/2023 12:20 PM EDT Oxygen Saturation 97% 12/20/2023 12:20 PM EDT Inhaled Oxygen Concentration - - Weight 72.1 kg (159 lb) 12/20/2023 12:20 PM EDT Height 160 cm (5' 3 ) 12/20/2023 12:20 PM EDT Body Mass Index 28.17 12/20/2023 12:20 PM EDT Plan of Treatment Health Maintenance Due Date Last Done Comments Hepatitis C Virus Screening 1970 HIV Screening 1983 DTaP/Tdap/Td Vaccines (1 - Tdap) 1989 Hepatitis B Vaccines (1 of 3 - 19+ 3-dose series) 12/21 Pap Smear (Ages 21-65) 1991 Mammogram 2010 Colonoscopy 2015 Pneumococcal Vaccines 50+ (1 of 1 - PCV) 01/14/2020 Zoster (Shingles) Vaccine (1 of 2) 01/14/2020 COVID-19 Vaccine (1 - 2023- season) 2023 Influenza Vaccine 09/19/2024 Insurance MEDICAID OUT OF STATE [facility] Care Teams Nut Former Relationship Specialty Start Date End Date Rinku Freitas MD [address] [place] [address] [place] [address] PCP - General Family Medicine 12/20/23
--- OUTSIDE RECORDS SUMMARY | 2024-09-10 09:42 | XMS_ITS | Clinical Summary ---
Author Organization [facility] Address [address] [place] [id number] Care Team Providers Care Loan Specialist Name Role Phone Unavailable Primary Care Provider Unavailabl e Social History Tobacco Use Types Packs/Day Years Used Date Smoking Tobacco: Never Assessed Comments Unknown Sex and Gender Information Value Date Recorded Sex Assigned at Not on file Legal Sex Female 11:07 AM [facility] Gender Identity Not on file Sexual Orientation Not on file Plan of Treatment Not on file Insurance [employer]
== END 2024-09-10 09:57 | disposition home or self-care (01) ==
PROVIDERS: PCP Family Medicine; Visit Provider Physician Assistant Medical
DX: S46.812D Strain of other muscles, fascia and tendons at shoulder and upper arm level, left arm, subsequent encounter (principal)

== ENCOUNTER 2024-09-16 14:50 | Outpatient (AMB) | payer OTHER, SELFPAY ==
--- NOTE | 2024-09-16 15:12 | MHC.PC.OV ---
Vital Signs 09/16/24 15:15 Height 5 ft 3 in Weight 164 lb 8 oz BMI 29.1 BP 138/70 Blood Pressure Location Rt brachial Position Sitting Respiration 14 Pulse 81 Pulse Source Pulse Oximeter Temp 98.1 F Temp Source Oral Pulse Oximetry (%) 97 Oxygen Delivery Method Room Air Intake Visit Reasons: Left Shoulder Pain/Discharge 09/08/24 from [facility] Intake Note: patient scheduled for ed follow up for left shoulder pain Raisin Separator Operator Required: No Allergies latex Allergy (Mild, Verified 09/16/24 15:14) Unknown Medication List - Last Reconciled 09/16/24 by Rinku Freitas MD acetaminophen 1,000 mg PO Q6H PRN aspirin 81 mg PO DAILY cetirizine (Zyrtec) 10 mg PO DAILY PRN cyclobenzaprine 10 mg (2 x 5 mg) PO Q8H PRN diazepam 5 mg PO BID PRN folic acid 20 mg PO DAILY ibuprofen 600 mg PO Q6H PRN magnesium citrate (Citrate of Magnesia oral) 150 mL PO .every other day meloxicam 15 mg PO DAILY prednisone 50 mg PO QAM Tobacco use date assessed: 05/08/22 HPI Left Shoulder Pain/Discharge 09/08/24 from [facility] HPI Details 54 y/o female presents to f/u ED visit 09/08/24 for pain over L scapula. 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 Had noted numbness to her L 4th and 5th digits and pain in shoulder. Xrays was reassuring, US negative. Was sent ibuprofen, tylenol, diazepam and lidoncaine patch. Had seen walk in clinic 09/10/24 and was given prednisone, cyclobenzaprine and meloxicam. Has complaints about her weight and reports difficulty with weight loss. Liver enzymes had been elevated in the past. HPI Comments History of Present Illness Details Documentation assistance for Rinku Freitas MD, was provided by Bandar Hartmann,? Mems Engineer on 09/16/2024 at 3:35 PM EST. I, Dr. Freitas, have read, observed, and verified documentation. ?? [facility] Medical History Hx of LEEP (loop electrosurgical excision procedure) of cervix complicating Pre-diabetes GERD (gastroesophageal reflux disease) Hypothyroidism Restless leg syndrome DVT of leg (deep venous thrombosis) Hx of blood clots Anxiety Surgical History History of endoscopy History of colonoscopy History of tonsillectomy Family History Paternal Grandmother Breast cancer Social History Housing: House Alcohol intake: current Alcohol intake frequency: a few times a week Patient Tobacco Use Status: Former Tobacco user e-Cigarette/Vaping Use: Never Used Second Hand Smoke Exposure: No service: No Current occupational status: employed Current occupational exposures/hazards: No Cognitive needs: No Hearing needs: No Vision needs: Yes (glasses) Female Reproductive History Menstrual Age of Menarche: 12 Questionnaire PHQ-9 Over the last 2 weeks, how often have you been bothered by any of the following problems? 1. Little interest or pleasure in doing things: not at all 2. Feeling down, depressed, or hopeless: not at all 3. Trouble falling or staying asleep, or sleeping too much: several days 4. Feeling tired or having little energy: several days 5. Poor appetite or overeating: several days 6. Feeling bad about yourself - or that you are a failure or have let yourself or your family down: not at all 7. Trouble concentrating on things, such as reading the newspaper or watching television: not at all 8. Moving or speaking so slowly that other people could have noticed. Or the opposite - being so fidgety or restless that you have been moving around a lot more than usual: not at all 9. Thoughts that you would be better off or of hurting yourself in some way: not at all Total score: 3 Source: Developed by Drs. Brando Domingo, Shawna Vu, Yemi Grier and colleagues, with an educational reji from [employer]. Thrive Questionnaire Date Thrive assessed: 05/08/22 I am a: Patient What is your living situation today?: I have a steady place to live Within the past 12 months, did the food you bought not last and you didn't have the money to get more?: Never true Within the past 12 months, did you worry whether your food would run out before you got money to buy more?: Never true Do you have trouble paying for medicines?: No Do you have trouble getting transportation to medical appointments?: No Do you have trouble paying your heating and electricity bill?: No Do you have trouble taking care of your child, family member or friend?: No Do you have trouble with day-to-day activities such as bathing, preparing meals, shopping, managing finances, etc.?: No Are you currently unemployed and looking for a job?: No Are you interested in more education?: No Please select the resources that you would like help with: None Currently or been in a relationship where the following occur: I choose not to answer THRIVE Score: 0 AUDIT C Alcohol Use Questionnaire (AUDIT-C) 1. How often do you have a drink containing alcohol?: 2-4 times a month 2. How many drinks containing alcohol do you have on a typical day when you are drinking?: 1 or 2 3. How often do you have six or more drinks on one occasion?: Less than monthly Total Score: 3 CURT-7 AMB Questionnaire CURT-7 Date CURT - 7 assessed: 05/08/22 Feeling nervous, anxious, or on edge: 1 = Several days Not being able to stop or control worryin = Several days Worrying too much about different things: 1 = Several days Trouble relaxin = Several days Being so restless that it is hard to sit still: 1 = Several days Becoming easily annoyed or irritable: 1 = Several days Feeling afraid as if something awful might happen: 0 = Not at all Total CURT-7 score (0-4 normal; 5-9 mild; 10-14 moderate; 15-21 severe): 6 Source: Developed by Drs. Brando Domingo, Shawna Vu, Yemi Grier and colleagues, with an educational reji from [employer]. Review of Systems Const Denies chills, Denies fatigue, Denies fever(s), Denies headache(s) and Denies weakness ENT Denies dizziness and Denies headache(s) Card Denies dyspnea Resp Denies cough, Denies dyspnea, Denies wheezing and Denies other (shortness of breath) Musc Denies numbness and Denies tingling Neuro Denies dizziness, Denies headache(s), Denies numbness, Denies tingling and Denies weakness Psych Denies anxiety and Denies depression Endo Denies fatigue Aller/Immun Denies wheezing Physical exam (Primary Care) Vital Signs: Last Vital Signs Temp 98.1 F 09/16/24 15:15 Pulse 81 09/16/24 15:15 Resp 14 09/16/24 15:15 BP 138/70 09/16/24 15:15 Pulse Ox 97 09/16/24 15:15 Oxygen Delivery Method Room Air 09/16/24 15:15 BMI result Body Mass Index 29.1 Tobacco/Smoking Status: Tobacco use Status Tobacco use date assessed 05/08/22 09/16/24 15:18 Patient Tobacco Use Status Former Tobacco user 09/16/24 15:18 e-Cigarette/Vaping Use Never Used 09/16/24 15:18 PHQ-9: PHQ-9 Score PHQ-9: Total score 3 09/16/24 15:22 Thrive Assessment: Date of Thrive Assessment Date Thrive assessed 05/08/22 09/16/24 15:18 Currently or been in a relationship where the following occur: I choose not to answer Const General: well developed; No acute distress Nutritional Appearance: well nourished Orientation/consciousness: patient oriented x3 HENMT Head: Yes normocephalic and Yes atraumatic Eyes General: appearance normal, both eyes and all related structures Pupils: Equal, round and reactive pupils present EOM: EOMs intact bilaterally Resp Effort & Inspection: normal respiratory effort Neuro General: patient oriented x3 and gait normal Cranial nerves: Yes Equal, round and reactive pupils present Psych Affect: normal affect Coding Level of Care Code Est Pt Level 4 (51412) Diagnoses Left shoulder pain M25.512 Overweight E66.3 Elevated TSH R79.89 Elevated liver enzymes R74.8 Pre-diabetes R73.03 Assessment & Plan Assessment & Plan (1) Left shoulder pain: Code(s): M25.512 - Pain in left shoulder Category: Medical Plan: Ongoing left shoulder pain which has begun to improve with meloxicam. Still has significant discomfort but tingling and numbness are much resolved and pain is improving as well. Continue meloxicam and cyclobenzaprine-will send a refill Continue ice which is helping Start physical therapy Adjust work environment Can cancel appointment with Ortho though if resolved. (2) Overweight: Code(s): E66.3 - Overweight Category: Medical Plan: Patient wanted to discuss GLP 1 medications. Likely would not qualify but she will check with her insurance Also discussed other means of obtaining a GLP 1 medications such as HERS. We discussed that she is the enough to use 1 of these medications if she is able to obtain it History of pre diabetes as well Will check labs (3) Elevated TSH: Code(s): R79.89 - Other specified abnormal findings of blood chemistry Category: Medical Plan: Patient says that prior levothyroxine cause neck discomfort Recheck thyroid hormone levels (4) Elevated liver enzymes: Code(s): R74.8 - Abnormal levels of other serum enzymes Category: Medical Plan: Recheck liver enzymes (5) Pre-diabetes: Code(s): R73.03 - Prediabetes Category: Medical Plan: As above, and recheck A1c Orders: Orders PT Evaluation and Treatment Today M25.512 - Pain in left shoulder Hemoglobin A1c Today E66.3 - Overweight, R73.01 - Impaired fasting glucose Lipid Panel Today E66.3 - Overweight, Z00.00 - Encounter for general adult medical examination without abnormal findings UA CC w/rflx Micro + Cult Today E66.3 - Overweight, Z00.00 - Encounter for general adult medical examination without abnormal findings Free T4 (Free Thyroxine) Today E03.9 - Hypothyroidism, unspecified, E66.3 - Overweight Comprehensive [place]. Panel Fast Today E66.3 - Overweight, Z00.00 - Encounter for general adult medical examination without abnormal findings Microalbumin, Random (w Creat) Today E66.3 - Overweight, I10 - Essential (primary) hypertension Triiodothyronine T3 Total Today E03.9 - Hypothyroidism, unspecified, E66.3 - Overweight Thyroid Stimulating Hormone Today E03.9 - Hypothyroidism, unspecified, E66.3 - Overweight Medications: Refilled meloxicam 15 mg PO DAILY 15 tabs 0RF cyclobenzaprine 10 mg (2 x 5 mg) PO Q8H PRN 20 tabs 0RF Muscle Spasm Discontinued prednisone Discontinued Reason: Doctor's Order 50 mg PO QAM 5 tabs 0RF
[2024-09-16 15:15] VITALS: BP 138/70; PULSE 81; RESP 14; TEMP 36.7; O2SAT 97; BMI 29.1
--- OUTSIDE RECORDS SUMMARY | 2024-09-16 15:40 | XMS_ITS ---
Author Name [facility] Organization Unknown Encounters Encounter Type Encounter Reason Primary Diagnosis Location Date Ambulatory [facility] 12/20/2023 Care Team Organization Name Specialty Phone Email Start Date End [facility] 12/22/2023 05/07/2024 [facility] 12/20/2023 [facility] Primary Care 12/20/2023 [facility] Primary Care 12/27/2021
--- OUTSIDE RECORDS SUMMARY | 2024-09-16 15:40 | XMS_ITS | Clinical Summary ---
Author Organization [facility] Address [address] [place] [address] Care Team Providers Care Sales Representative Metals Name Role Phone Unavailable Primary Care Provider Unavailabl e Social History Tobacco Use Types Packs/Day Years Used Date Smoking Tobacco: Never Assessed Comments Unknown Sex and Gender Information Value Date Recorded Sex Assigned at Not on file Legal Sex Female 11:07 AM [facility] Gender Identity Not on file Sexual Orientation Not on file Plan of Treatment Not on file Insurance [employer]
--- OUTSIDE RECORDS SUMMARY | 2024-09-16 15:40 | XMS_ITS | Clinical Summary ---
Author Organization [facility] Address [address] [place] [address] Care Team Providers Care Administration Dean Name Role Phone Rinku Freitas MD Primary [...] Vaccine 09/19/2024 Insurance MEDICAID OUT OF STATE [facility] Care Teams Administration Dean Relationship Specialty Start Date End Date Rinku Freitas MD [address] [place] [address] [place] [address] PCP - General Family Medicine 12/20/23
== END 2024-09-16 15:49 | disposition home or self-care (01) ==
LOC: HO.HMCFM 14:50
PROVIDERS: PCP Family Medicine; Visit Provider Family Medicine
DX: M25.512 Pain in left shoulder (principal); E66.3 Overweight; R79.89 Other specified abnormal findings of blood chemistry; R74.8 Abnormal levels of other serum enzymes; R73.03 Prediabetes

== ENCOUNTER 2024-10-16 07:31 | Outpatient (REF) | payer OTHER, SELFPAY ==
--- OUTSIDE RECORDS SUMMARY | 2024-10-16 07:34 | XMS_ITS | Encounter Summary ---
Author Organization [facility] Address [address] [place] [address] Care Team Providers Care General Internist And Physician Leader Name Role Phone Champ Anderson MD Primary Care Provider Unavail able Luiz Dias Primary Care Provider Champ Sommers MD Primary Care Provider Unavail able Analy Hicks MD Primary Care Provider Unavaila Keren Powers MD Primary Care Provider [phone] Encounter Details Date Type Department Care Team Description 02/17/2013 Release of Information Medical Records [address] [place] [address] Abstract, Provider Social History Tobacco Use Types Packs/Day Years Used Date Smoking Tobacco: Former Cigarettes Q uit: 02/19/1994 Smokeless Tobacco: Former Alcohol Use Standard Drinks/Week Comments Yes 0 (1 standard drink = 0.6 oz pur e alcohol) occ Sex Assigned at Date Recorded Not on file documented as of this encounter Plan of Treatment Not on file documented as of this encounter Visit Diagnoses Not on filedocumented in this encounter Care Teams General Internist And Physician Leader Relationship Specialty Start Date End Date Champ Anderson MD PCP - General 05/30/99 05/17/14 Luiz Dias PCP - General Internal Medicine 05/18/14 07/26/14 Champ Anderson MD PCP - General Internal Medicine 07/27/14 12/17/14 Analy Hicks MD PCP - General Internal Medicine 12/18/14 12/06/20 Keren Stout MD [address] [place] [address] [id number] PCP - General Internal Medicine 12/07/20 documented as of this encounter
--- OUTSIDE RECORDS SUMMARY | 2024-10-16 07:34 | XMS_ITS | Clinical Summary ---
Author Organization [facility] Address [address] [place] [address] Care Team Providers Care Senior Treasury Consultant Name Role Phone Unavailable Primary Care Provider [...]
--- OUTSIDE RECORDS SUMMARY | 2024-10-16 07:34 | XMS_ITS | Encounter Summary ---
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 01/05/2016 genetic testing- Factor V and PT Gene Analysis Encounter Details Date Type Department Care Team Description 01/05/2016 Telephone Oncology/Hematology - [address] [address] Kimberley Arzate MD Supervisor [employer] Feedback (genetic testing- Factor V and PT Gene Analysis) Social History Tobacco Use Types Packs/Day Years Used Date Smoking Tobacco: Former Cigarettes Q uit: 02/19/1994 Smokeless Tobacco: Never Alcohol Use Standard Drinks/Week Comments Yes 0.8 (1 standard drink = 0.6 oz p ure alcohol) occ Sex Assigned at Date Recorded Not on file documented as of this encounter Miscellaneous Notes * Telephone Encounter - Marsha Mcduffie - 01/12/2016 8:16 AM EST Message routed to ordering provider as . On 01/05/2016, an order was placed for Genetic Testing. This patient's insurance plan requires prior authorization for Genetic, DNA and Molecular testing before the test can be performed. Based on the information that was provided to the insurance company, your patient received a DENIALfor the genetic testing that was ordered. Please have a member of your clinical staff notify the patient regarding this denial, as further follow up or testing may be needed. Thank you, Marsha Referrals Certified Surgical First Assistant [facility] Referrals Department * Telephone Encounter - Marshakatie Mcduffie - 01/05/2016 4:46 PM EST Standardized Prior Authorization Request form completed and faxed to [facility] Case Management for reviewwith last office note and lab order. Awaiting response. documented in this encounter Plan of Treatment Not on file documented as of this encounter Visit Diagnoses Not on filedocumented in this encounter Care Teams Apple Turner Relationship Specialty Start Date End Date Analy Hicks MD PCP - General Internal Medicine 12/18/14 12/06/20 Keren Stout MD [address] [place] [address] PCP - General Internal Medicine 12/07/20 documented as of this encounter
--- OUTSIDE RECORDS SUMMARY | 2024-10-16 07:34 | XMS_ITS | Encounter Summary ---
Author Organization [facility] Address [address] [place] [address] Care Team Providers Care Extractor Filler Name Role Phone Analy Hicks MD Primary Care Provider Keren Hunt MD Primary Care Provider [phone] Encounter Details Date Type Department Care Team Description 07/12/2018 Pt. Non Urgent Medical Question Medicine/Pediatrics - [address] [address] Analy Hicks MD Social History Tobacco Use Types Packs/Day Years Used Date Smoking Tobacco: Former Cigarettes Q uit: 02/19/1994 Smokeless Tobacco: Never Alcohol Use Standard Drinks/Week Comments Yes 0.8 (1 standard drink = 0.6 oz p ure alcohol) occ Sex Assigned at Date Recorded Not on file documented as of this encounter Progress Notes * Rosalba Soto L.P.N. - 07/12/2018 2:42 PM EDTFrom: Jeanie Barragan To: Analy Hicks MD Sent: 07/12/2018 2:38 PM EDT Subject: Medication I would like to know why my medication has been denied? I use the lorazepam only as needed when I have had a number of days with little sleep. The last time I had this refilled was last year so I have not abused the medication in any way. So please explain why this refill was denied? documented in this encounter Plan of Treatment Not on file documented as of this encounter Visit Diagnoses Not on filedocumented in this encounter Care Teams Extractor Filler Relationship Specialty Start Date End Date Analy Hicks MD PCP - General Internal Medicine 12/18/14 12/06/20 Keren Stout MD [address] [place] [address] PCP - General Internal Medicine 12/07/20 documented as of this encounter
--- OUTSIDE RECORDS SUMMARY | 2024-10-16 07:34 | XMS_ITS | Encounter Summary ---
Author Organization [facility] Address [address] [place] [address] Care Team Providers Care Mathematics Academic Chair Name Role Phone Analy Hicks MD Primary Care Provider Keren Hunt MD Primary Care Provider [phone] Reason for Visit * Reason Onset Date Comments Special Procedure 07/08/2020 Encounter Details Date Type Department Care Team Description 07/08/2020 Telephone Gastroenterology - [address] [place] [address] Kev Antunez MD [address] [place] [address] Special Procedure Social History Tobacco Use Types Packs/Day Years Used Date Smoking Tobacco: Former Cigarettes Q uit: 02/19/1994 Smokeless Tobacco: Never Alcohol Use Standard Drinks/Week Comments Yes 0.8 (1 standard drink = 0.6 oz p ure alcohol) occ Sex Assigned at Date Recorded Not on file documented as of this encounter Miscellaneous Notes * Telephone Encounter - Page Carter - 07/08/2020 10:07 AM EDT Left message to schedule screening colon documented in this encounter Plan of Treatment Not on file documented as of this encounter Visit Diagnoses Not on filedocumented in this encounter Care Teams Mathematics Academic Chair Relationship Specialty Start Date End Date Analy Hicks MD PCP - General Internal Medicine 12/18/14 12/06/20 Keren Stout MD [address] [place] [address] PCP - General Internal Medicine 12/07/20 documented as of this encounter
--- OUTSIDE RECORDS SUMMARY | 2024-10-16 07:34 | XMS_ITS | Clinical Summary ---
Author Organization [facility] Address [address] [place] [address] Care Team Providers Care Orthopedic Cast Specialist Name Role Phone Rinku Freitas MD Primary [...] Vaccine 09/19/2024 Insurance MEDICAID OUT OF STATE [facility] Care Teams Orthopedic Cast Specialist Relationship Specialty Start Date End Date Rinku Freitas MD [address] [place] [address] [place] [address] PCP - General Family Medicine 12/20/23
--- OUTSIDE RECORDS SUMMARY | 2024-10-16 07:34 | XMS_ITS | Encounter Summary ---
Author Organization [facility] Address [address] [place] [address] Care Team Providers Care Patient Placement Coordinator Name Role Phone Unavailable Primary Care Provider Unavailabl e Encounter Details Date Type Department Care Team (Latest Contact Info) Description 11/12/2020 [facility] [place] ADM Social History Tobacco Use Types Packs/Day Years Used Date Smoking Tobacco: Never Assessed Comments Unknown Sex and Gender Information Value Date Recorded Sex Assigned at Not on file Legal Sex Female 11:07 AM [facility] Gender Identity Not on file Sexual Orientation Not on file documented as of this encounter Plan of Treatment Not on file documented as of this encounter Visit Diagnoses Not on filedocumented in this encounter
--- OUTSIDE RECORDS SUMMARY | 2024-10-16 07:34 | XMS_ITS | Encounter Summary ---
Author Organization [facility] Address [address] [place] [address] Care Team Providers Care Pot Holder Binder Name Role Phone Champ Anderson MD Primary Care Provider Unavail able Luiz Dias Primary Care Provider Champ Sommers MD Primary Care Provider Unavail able Analy Hicks MD Primary Care Provider Unavaila Keren Powers MD Primary Care Provider [phone] Encounter Details Date Type Department Care Team Description 04/07/2014 TECHNOLOGY PROGRAM MANAGER/[facility] Report Medical Records [address] [place] [address] Abstract, Provider Social History Tobacco Use Types [...] on filedocumented in this encounter Care Teams Pot Holder Binder Relationship Specialty Start Date End Date Champ Anderson MD PCP - General 05/30/99 05/17/14 Luiz Dias PCP - General Internal Medicine 05/18/14 07/26/14 Champ Anderson MD PCP - General Internal Medicine 07/27/14 12/17/14 Analy Hicks MD PCP - General Internal Medicine 12/18/14 12/06/20 Keren Stout MD [address] [place] [address] PCP - General Internal Medicine 12/07/20 documented as of this encounter
--- OUTSIDE RECORDS SUMMARY | 2024-10-16 07:34 | XMS_ITS | Encounter Summary ---
Author Organization [facility] Address [address] [place] [address] Care Team Providers Care Outside Upholsterer Name Role Phone Champ Anderson MD Primary Care Provider Unavail able Luiz Dias Primary Care Provider Champ Sommers MD Primary Care Provider Unavail able Analy Hicks MD Primary Care Provider Unavaila Keren Powers MD Primary Care Provider [phone] Encounter Details Date Type Department Care Team Description 04/20/2010 [facility] Proxy Form Medical Records [address] [place] [address] Abstract, Provider Social History Tobacco Use Types Packs/Day Years Used Date Smoking Tobacco: Former Cigarettes Q uit: 02/19/1994 Smokeless Tobacco: Never Alcohol Use Standard Drinks/Week Comments Yes 0 (1 standard drink = 0.6 oz pur e alcohol) occ Sex Assigned at Date Recorded Not on file documented as of this encounter Plan of Treatment Not on file documented as of this encounter Visit Diagnoses Not on filedocumented in this encounter Care Teams Outside Upholsterer Relationship Specialty Start Date End Date Champ Anderson MD PCP - General 05/30/99 05/17/14 Luiz Dias PCP - General Internal Medicine 05/18/14 07/26/14 Champ Anderson MD PCP - General Internal Medicine 07/27/14 12/17/14 Analy Hicks MD PCP - General Internal Medicine 12/18/14 12/06/20 Keren Stout MD [address] [place] [address] PCP - General Internal Medicine 12/07/20 documented as of this encounter
--- OUTSIDE RECORDS SUMMARY | 2024-10-16 07:34 | XMS_ITS | Encounter Summary ---
Author Organization [facility] Address [address] [place] [address] Care Team Providers Care Webfed Offset Press Operator Name Role Phone Analy Hicks MD Primary Care Provider Damaris Keren Powers MD Primary Care Provider [phone] Encounter Details Date Type Department Care Team Description 05/01/2016 Release of Information Medical Records [address] [place] [address] Abstract, Provider Social History Tobacco Use Types [...] on filedocumented in this encounter Care Teams Webfed Offset Press Operator Relationship Specialty Start Date End Date Analy Hicks MD PCP - General Internal Medicine 12/18/14 12/06/20 Keren tSout MD [address] [place] [address] PCP - General Internal Medicine 12/07/20 documented as of this encounter
--- OUTSIDE RECORDS SUMMARY | 2024-10-16 07:34 | XMS_ITS | Encounter Summary ---
Author Organization [facility] Address [address] [place] [address] Care Team Providers Care Luncheonette Manager Name Role Phone Rinku Freitas MD Primary Care Provider Encounter Details Date Type Department Care Team (Late st Contact Info) Description 12/20/20[address] Document [address] [place] [phone] Provider, Generic Social History Tobacco Use Types Packs/Day Years Used Date Smoking Tobacco: Never Smokeless Tobacco: Never Comments Unknown Sex and Gender Information Value Date Recorded Sex Assigned at Not on file Legal Sex Female 12:56 PM EST Gender Identity Not on file Sexual Orientation Not on file documented as of this encounter Plan of Treatment Not on file documented as of this encounter Visit Diagnoses Not on filedocumented in this encounter Care Teams Luncheonette Manager Relationship Specialty Start Date End Date Rinku Freitas MD [address] [place] [address] [place] [address] PCP - General Family Medicine 12/20/23 documented as of this encounter
--- OUTSIDE RECORDS SUMMARY | 2024-10-16 07:34 | XMS_ITS | Encounter Summary ---
Author Organization [facility] Address [address] [place] [address] Care Team Providers Care Agriculture Mechanic Name Role Phone Unavailable Primary Care Provider Unavailabl e Encounter Details Date Type Department Care Team (Latest Contact Info) Description 11/19/2020 [facility] [place] ADM Social History Tobacco Use Types Packs/Day Years Used Date Smoking Tobacco: Never Assessed Comments Unknown Sex and Gender Information Value Date Recorded Sex Assigned at Not on file Legal Sex Female 11:07 AM [facility] Gender Identity Not on file Sexual Orientation Not on file documented as of this encounter Plan of Treatment Not on file documented as of this encounter Visit Diagnoses Not on filedocumented in this encounter
--- OUTSIDE RECORDS SUMMARY | 2024-10-16 07:34 | XMS_ITS | Encounter Summary ---
Author Organization [facility] Address [address] [place] [address] Care Team Providers Care Weatherization Crew Leader Name Role Phone Unavailable Primary Care Provider Unavailabl e Encounter Details Date Type Department Care Team (Latest Contact Info) Description 12/20/2020 [facility] BIOMETRIC [place] ADM Social History Tobacco Use Types Packs/Day Years Used Date Smoking Tobacco: Never Assessed Comments Unknown Sex and Gender Information Value Date Recorded Sex Assigned at Not on file Legal Sex Female 11:07 AM [facility] Gender Identity Not on file Sexual Orientation Not on file documented as of this encounter Plan of Treatment Not on file documented as of this encounter Visit Diagnoses Not on filedocumented in this encounter
--- OUTSIDE RECORDS SUMMARY | 2024-10-16 07:34 | XMS_ITS | Encounter Summary ---
Author Organization [facility] Address [address] [place] [address] Care Team Providers Care Recruiting Internship Name Role Phone Analy Hicks MD Primary Care Provider Keren Hunt MD Primary Care Provider [phone] Encounter Details Date Type Department Care Team Description 03/07/2015 Refill HOSPITAL SECRETARY - [address] [address] Desiree Silvestre MD Social History Tobacco Use Types Packs/Day Years Used Date Smoking Tobacco: Former Cigarettes Q uit: 02/19/1994 Smokeless Tobacco: Never Alcohol Use Standard Drinks/Week Comments Yes 0.8 (1 standard drink = 0.6 oz p ure alcohol) Sex Assigned at Date Recorded Not on file documented as of this encounter Miscellaneous Notes * Telephone Encounter - Karyn Ham R.N. - 03/08/2015 11:12 AM ESTFrom: Jeanie Barragan To: Desiree Silvestre MD Sent: 03/07/2015 3:53 PM EST Subject: Medication Renewal Request Original authorizing provider: Desiree Silvestre MD Jeanie Barragan would like a refill of the following medications: Levonorgest-Eth Estrad 91-Day (SEASONIQUE) 0.15-0.03 &0.01 MG Tab [Desiree Silvestre MD] Preferred pharmacy: [address] Comment: documented in this encounter Plan of Treatment Not on file documented as of this encounter Visit Diagnoses Not on filedocumented in this encounter Care Teams Recruiting Internship Relationship Specialty Start Date End Date Analy Hicks MD PCP - General Internal Medicine 12/18/14 12/06/20 Keren Stout MD [address] [place] [address] PCP - General Internal Medicine 12/07/20 documented as of this encounter
--- OUTSIDE RECORDS SUMMARY | 2024-10-16 07:34 | XMS_ITS | Encounter Summary ---
Author Organization [facility] Address [address] [place] [address] Care Team Providers Care Sales Representative Education Courses Name Role Phone Rinku Freitas MD Primary Care Provider [phone] Encounter Details Date Type Department Care Team (Latest Contact Info) Description 02/19/2020 Lab Requisition [facility] COVID Drive Through [address] [place] [address] [address] [place] [address] Jerman Sanders PA-C [address] [place] [phone] Encounter for laboratory testing for COVID-19 virus Social History Tobacco Use Types Packs/Day Years Used Date Smoking Tobacco: Never Assessed Comments Unknown Sex and Gender Information Value Date Recorded Sex Assigned at Not on file Legal Sex Female 12:56 PM EST Gender Identity Not on file Sexual Orientation Not on file documented as of this encounter Plan of Treatment Not on file documented as of this encounter Procedures Procedure Name Priority Date/Time Associated Diagnosis Comments COVID-19 (SARS-COV-2) - [facility] Routine 02/19/2020 12:58 PM EST Encounter for laboratory testing for COVID-19 virus [ICD-10-CM] documented in this encounter Results * COVID-19 (SARS-COV-2) ([facility]) (02/19/2020 12:58 PM EST) COVID-19 RT-PCR NOT-DETECT ED Not-Detec dannielle 02/22/2020 9:[address] [facility] - [facility] Comment:Interpretation: The viral RNA was not detected, making the COVID-19 diagnosis less likely. Clinical correlation is highly recommended.Final report signed by Mau Bear, Ph.D., [facility], Laboratory DirectorTests performed at [facility] Microbiology Nasopharyngeal swab / Unknown 02/19/2020 12:58 PM EST 02/19/2020 12:58 PM EST Narrative BERNARDINO BAZZI - 02/22/2020 9:41 PM EST Performed by [facility] [address] [place] [address], CLIA# [id number] and [place] License# [id number] Jerman Sanders PA-C MICROBIOLOGY - GENERAL OR DERABLES Final Result BERNARDINO BAZZI documented in this encounter Visit Diagnoses Diagnosis Encounter for laboratory testing for COVID-19 virus documented in this encounter Care Teams Sales Representative Education Courses Relationship Specialty Start Date End Date Rinku Freitas MD [address] [place] [address] Dr [place], [place] [address] PCP - General Family Medicine 12/20/23 documented as of this encounter
--- OUTSIDE RECORDS SUMMARY | 2024-10-16 07:34 | XMS_ITS | Encounter Summary ---
Author Organization [facility] Address [address] [place] [address] Care Team Providers Care Hospitalist Program Director Name Role Phone Champ Anderson MD Primary Care Provider Unavail able Luiz Dias Primary Care Provider Champ Sommers MD Primary Care Provider Unavail able Analy Hicks MD Primary Care Provider Unavaila Keren Powers MD Primary Care Provider [phone] Encounter Details Date Type Department Care Team Description 01/16/2011 Refill OBGYN - [place] [address] [place] [address] Maximus Pathak MD Social History Tobacco Use Types Packs/Day [...] on filedocumented in this encounter Care Teams Hospitalist Program Director Relationship Specialty Start Date End Date Champ Anderson MD PCP - General 05/30/99 05/17/14 Luiz Dias PCP - General Internal Medicine 05/18/14 07/26/14 Champ Anderson MD PCP - General Internal Medicine 07/27/14 12/17/14 Analy Hicks MD PCP - General Internal Medicine 12/18/14 12/06/20 Keren Stout MD [address] [place] [address] PCP - General Internal Medicine 12/07/20 documented as of this encounter
--- OUTSIDE RECORDS SUMMARY | 2024-10-16 07:34 | XMS_ITS | Clinical Summary ---
Author Organization [facility] Address [address] [place] [address] Care Team Providers Care Assistant Professor Of Radiology Name Role Phone Keren Stout MD Primary Care Provider [phone] Allergies Active Allergy Reactions Severity Noted Date Comments Latex Low 03/12/2006 Seasonal 07/06/2017 Medications Medication Sig Dispensed Refills Start Date End Date Status cetirizine (ZYRTEC) 10 MG tablet Take 10 mg by mouth daily. 0 Active FOLIC ACID OR Take by mouth. 0 Active Aspirin (ASPIR-81 OR) Take by mouth. 0 Active Magnesium 250 MG Tab Take by mouth. 0 Active Ascorbic Acid (CALLUM-C OR) Take by mouth. 0 Active Cyanocobalamin (B-12) 100 MCG Tab Take by mouth. 0 Active lorazepam (ATIVAN) 0.5 MG tabletIndications:Anx iety Take 1 Tab by mouth at bedtime as needed for Anxiety. 28 Tab 0 12/15/2019 Active sertraline (Zoloft) 50 MG tablet Take 1 tablet by mouth daily. 90 tablet 0 12/08/2020 Active Active Problems Problem Noted Date Venous thrombosis of lower extremity 10/2015 Family history of factor V Leiden mutati on 12/25/2015 Anxiety state 07/27/2014 Family history of breast cancer 03/22/19 11 Overview: Paternal GM ALLERGIC RHINITIS 06/14/2005 ECZEMA, 06/14/2005 Acute thyroiditis 05/01/2005 Overview: post Resolved Problems Problem Noted Date Resolved Date DVT (deep venous thrombosis) 12/27/201510/2015 jail current use of anticoagulant therapy 1 02/25/2015 04/26/2021 S/P LEEP of cervix 01/30/2011 05/08/2013 Mild dysplasia of cervix 01/30/2011 014 Family history of factor V deficiency 12/25/2015 Elevated blood pressure 04/27/19 22 Immunizations Name Administration Dates Next Due Influenza (> 6 Months) 11/30/2011(Deferred: Seda ent Refused) TD (STATE SUPPLIED FOR ADULT S AND CHILDREN) 12/04/2003 Tdap 12/03/2014 Family History Medical History Relation Name Comments Hypertension Brother Diabetes Father CABG, cholester ol, colon polyp CAD Maternal Grandmother dialysi s Hypercholesterolemia Mother CA Breast Paternal Grandmother 1 ? age CA Breast Paternal Grandmother 2 Thyroid Disorder Sister facctor V L eiden CA Colon Negative Hx CA Ovarian Negative Hx Uterine Cancer Negative Hx Relation Name Status Comments Brother Alive Father Alive Maternal Grandfather Maternal Grandmother Mother Alive Paternal Grandfather Paternal Grandmother 1 ? age Paternal Grandmother 2 Sister Alive Social History Tobacco Use Types Packs/Day Years Used Date Smoking Tobacco: Former Cigarettes Q uit: 02/19/1994 Smokeless Tobacco: Never Alcohol Use Standard Drinks/Week Comments Yes 0.8 (1 standard drink = 0.6 oz p ure alcohol) occ Sex Assigned at Date Recorded Not on file Last Filed Vital Signs Vital Sign Reading Time Taken Comments Blood Pressure 118/72 12/15/2019 3:53 PM EDT Pulse 81 12/15/2019 3:53 PM EDT Temperature 36.6 C (97.8 F) 12/15/2019 3:53 PM EDT Respiratory Rate 14 03/11/2019 9:31 AM EST Oxygen Saturation 98% 12/29/2015 10:05 AM EST Inhaled Oxygen Concentration - - Weight 71.5 kg (157 lb 9.6 oz) 12/15/2019 3:53 P M EDT Height 160 cm (5' 3 ) 12/15/2019 3:53 PM EDT Body Mass Index 27.92 12/15/2019 3:53 PM EDT Plan of Treatment Health Maintenance Due Date Last Done Comments Covid-19 Vaccine (#1) 1970 HEPATITIS C SCREENING 01/14/1988 BASELINE HEALTH EXAM 40-64 12/29/201912/28, 12/28/2017, 12/08/2014, Additional history exists COLON CANCER SCREENING 01/14/2020 SHINGLES VACCINE (1 of 2) 01/14/2020 MAMMOGRAM 02/15/2020 02/14/2019, 01/20, 02/02/2017, Additional history exists CHOLESTEROL SCREENING 12/28/2022 12/28/2017 , 12/08/2014, 12/12/2005, Additional history exists CERVICAL CANCER SCREENING 07/13/20232018, 05/08/2013, 08/07/2011, Additional history exists BMI CHECK/ADVISE 02/20/2024 07/12/2018, , 07/06/2017, Additional history exists DEPRESSION SCREENING/FOLLOWUP 02/20/2024, 09/09/2020, 03/02/2020, Additional history exists SOCIAL NEEDS SCREENING 02/20/2024 07/12/2018 INFLUENZA (#1) 2024 DTAP/TDAP/TD (2 - Td or Tdap) 12/03/2024 12/03/2014, 12/04/2003 PNEUMOCOCCAL VACCINE FOR HIG H RISK PATIENTS (#1) 2035 Care Teams Assistant Professor Of Radiology Relationship Specialty Start Date End Date Keren Stout MD [address] [place] [id number] PCP - General Internal Medicine 12/07/20
--- OUTSIDE RECORDS SUMMARY | 2024-10-16 07:34 | XMS_ITS | Encounter Summary ---
Author Organization [facility] Address [address] [place] [address] Care Team Providers Care Metabolic Specialist Name Role Phone Unavailable Primary Care Provider Unavailabl e Encounter Details Date Type Department Care Team (Latest Contact Info) Description 01/19/2021 [facility] [place] ADM Social History Tobacco Use Types Packs/Day Years Used Date Smoking Tobacco: Never Assessed Comments Unknown Sex and Gender Information Value Date Recorded Sex Assigned at Not on file Legal Sex Female 11:[address] [facility] Gender Identity Not on file Sexual Orientation Not on file documented as of this encounter Plan of Treatment Not on file documented as of this encounter Visit Diagnoses Not on filedocumented in this encounter
[2024-10-16 11:22] LABS: Appearance Urine Clear; Glucose Urine UA Negative (Negative); PH 5.5 (5.0-9.0); Specific Gravity - Urine 1.015 (1.005-1.025)
[2024-10-16 12:12] LABS: Alanine Aminotransferase 26 U/L (0-31); Albumin Level 4.5 g/dL (3.5-5.0); Alkaline Phosphatase 108 U/L (39-117); Anion Gap 10 (12-20); Aspartate Amino Transferase 30 U/L (5-31); Blood Urea Nitrogen 18 mg/dL (9-16); Calcium 9.7 mg/dL (8.4-10.2); Carbon Dioxide 29 mmol/L (22-29); Chloride 105 mmol/L (96-108); Cholesterol 263 mg/dL (<200); Estimated Glomerular Filt Rate > 60; Free T4 (Free Thyroxine) 0.69 ng/dL (0.71-1.85); HDL Cholesterol 58 mg/dL (>40); Potassium 4.9 mmol/L (3.3-5.1); Sodium 139 mmol/L (135-145); Thyroid Stimulating Hormone 9.30 uIU/mL (0.32-4.0); Total Protein 7.3 g/dL (6.5-8.0); Triglycerides 105 mg/dL (<150)
[2024-10-16 12:23] LABS: Hemoglobin A1C 190.5042 umol/L; Total Hemoglobin (HGBA1C) 4558.1447 umol/L
== END 2024-10-16 07:32 | disposition home or self-care (01) ==
LOC: HO.WFDLDS 07:31
PROVIDERS: Visit Provider Family Medicine
DX: Z00.00 Encounter for general adult medical examination without abnormal findings (principal); E03.9 Hypothyroidism, unspecified; I10 Essential (primary) hypertension; R73.01 Impaired fasting glucose; E66.3 Overweight
CPT/HCPCS: 36415; 80053; 80061; 81003; 82043; 82570; 83036; 84439; 84443; 84480